=== PATIENT | male | born 1965 | race African-American/Black ===

== ENCOUNTER 2021-07-13 02:52 | Emergency (ER) | payer MEDICAID ==
[~2021-07-13] VITALS: Ht 175.3 cm; Wt 91.0 kg
[2021-07-13 04:31] VITALS: BP 133/82
[2021-07-13] MEDS ORDERED: TOPUD MT (04:33)
== END 2021-07-13 04:31 | disposition home or self-care (01) ==
LOC: ER 02:52
DX: K40.90 Unilateral inguinal hernia, without obstruction or gangrene, not specified as recurrent (principal); I11.0 Hypertensive heart disease with heart failure; I50.9 Heart failure, unspecified; E11.9 Type 2 diabetes mellitus without complications; Z88.0 Allergy status to penicillin
CPT/HCPCS: 99283